=== PATIENT | female | born 2005 | race Caucasian/White ===

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

== ENCOUNTER 2024-05-05 21:49 | Emergency (ER) | payer MEDICAID, SELFPAY ==
--- NOTE | 2024-05-05 | ECG_ITS ---
Test Reason : cp Blood Pressure : */* mmHG Vent. Rate : 79 BPM Atrial Rate : 79 BPM P-R Int : 148 ms QRS Dur : 86 ms QT Int : 370 ms P-R-T Axes : 64 75 57 degrees QTcB Int : 424 ms Normal sinus rhythm with sinus arrhythmia Normal ECG No previous ECGs available Referred By: Generic ED Physician Electronically Signed By: Marlon Zabala
[2024-05-05 21:56] VITALS: BP 120/57; PULSE 85; RESP 18; TEMP 36.9; O2SAT 100; BMI 23.9
--- NOTE | 2024-05-05 21:59 | MHC.EDTECH ---
EKG taken per order,signed by provider
--- NOTE | 2024-05-05 22:13 | MHC.EDTECH ---
Patient brought into triage area,labs,and urine collected,sent o lab
[2024-05-05 22:26] LABS: Hematocrit 38.7 % (37.0-47.0); Hemoglobin 13.1 g/dl (12.0-16.0); Mean Corpuscular HGB Conc 33.9 g/dl (31.0-35.0); Mean Corpuscular Hemoglobin 30.4 pg (27.0-33.0); Mean Corpuscular Volume 89.8 fL (80.0-98.0); Mean Platelet Volume 10.4 fL (9.4-12.3); Platelet Count 245 X10*3/uL (160-400); Red Blood Count 4.31 X10*6/uL (4.20-5.50); Red Cell Distribution Width 12.2 % (11.0-16.0); White Blood Count 7.7 X10*3/uL (4.8-10.8)
[2024-05-05 22:30] LABS: Appearance Urine Cloudy; Color Urine Yellow; Glucose Urine UA Negative (Negative); Leukocyte Esterase Urine Moderate (2+) (Negative); Nitrite Urine Negative (Negative); PH 6.5 (5.0-9.0); UMIC TRIGGER UACC YES; Urine Blood Negative (Negative); Urine Ketones Negative (Negative); Urine Protein Negative (Neg-Trace)
[2024-05-05 22:34] LABS: Alanine Aminotransferase 52 U/L (0-31); Albumin Level 4.3 g/dL (3.5-5.0); Alkaline Phosphatase 78 U/L (39-117); Anion Gap 9 (12-20); Aspartate Amino Transferase 32 U/L (5-31); Bilirubin Total 0.2 mg/dL (0.0-1.0); Blood Urea Nitrogen 13 mg/dL (9-16); Carbon Dioxide 21 mmol/L (22-29); Chloride 113 mmol/L (96-108); Creatinine Clr Calc Pharmacy 95.6; Estimated Glomerular Filt Rate > 60; Glucose Random 94 mg/dL (60-115); Potassium 3.9 mmol/L (3.3-5.1); Sodium 139 mmol/L (135-145)
[2024-05-05 22:43] LABS: Troponin-I High Sensitivity < 2.7 ng/L (<3.5-17.0)
[2024-05-05 22:50] LABS: Bacteria Urine 3+ (None Seen); Hyaline Casts Urine 0-2 /LPF (0-2); RBC Urine 0-2 /HPF (0-2); UACC Culture Trigger YES; WBC Urine 21-50 /HPF (0-5)
[2024-05-06 02:12] VITALS: BP 121/69; PULSE 82; RESP 18; TEMP 37.1; O2SAT 100
--- NOTE | 2024-05-06 02:47 | ED.CHESTPAIN ---
HPI - Chest Pain General Chief Complaint: Chest Pain Stated Complaint: chest pain, bladder issues Time Seen by Provider: 05/06/24 03:33 Source: patient Mode of arrival: ambulatory Limitations: no limitations History of Present Illness ED Provider: Dr. Benedicto Reyna HPI narrative: 19-year-old female with a history of depression, anxiety, bipolar disorder who presents emergency department for evaluation left-sided chest tightness /pressure x1 month. She states that the chest pain is intermittent and she gets 2-3 episodes per day. She states the episodes could last 10 seconds to 3 minutes. The patient states that her grandmother was concerned about the symptoms encourage the patient to come to the emergency department for evaluation. The patient denied fever, chills, cough, nausea, vomiting, diarrhea, frequency, urgency or dysuria. Related Data Previous Rx's ?Medication ?Instructions ?Recorded prednisone 20 mg tablet 40 mg (2 x 20 mg) PO DAILY #10 tabs 11/15/22 triamcinolone acetonide 0.5 % 1 appl topical BID #15 grams 11/15/22 topical cream Allergies Allergy/AdvReac Type Severity Reaction Status Date / Time No Known Allergies Allergy Verified 05/05/24 21:59 Review of Systems Review of Systems: Yes all other systems are reviewed and are negative PMFSH Social History Social History Smoked in Last 30 Days: Yes Advance Directives: No Advance Directives Information Provided: No Physical Exam Vital Signs: Vital Signs: Last Vital Signs Temp 98.2 F 05/06/24 05:13 Pulse 90 05/06/24 05:13 Resp 14 05/06/24 05:13 BP 124/80 05/06/24 05:13 Pulse Ox 99 05/06/24 05:13 O2 Del Method Room Air 05/06/24 05:13 BMI result Body Mass Index 23.9 Vital signs were normal Exam: General: Awake, alert in no distress Head: Normocephalic, atraumatic EENT: PERRL, Lids normal, sclera normal, conjunctiva normal, nose normal , ears normal, throat without erythema or exudates Neck: Supple, no adenopathy Lung: breath sounds symmetric, no wheezing, rales or rhonchi Chest: symmetric movement, patient has tenderness palpation of her costochondral joints in the anterior chest left greater than right Heart: regular rate and rhythm, normal S1, S2 no murmurs or rubs Abdomen: soft, non-tender, nondistended, normal bowel sounds Back: no vertebral tenderness, no CVAT Extremities: no deformities, moves all extremities symmetrically Neuro: Awake, alert, oriented, normal speech, cranial nerves intact, moves all extremities symmetrically Psych: Pleasant, cooperative Medical Decision Making Medical Decision Making [facility] Narrative: 19-year-old female with a history of depression, anxiety, bipolar disorder who presents emergency department for evaluation Of intermittent, left-sided chest pressure/ tightness with to 3 episodes per day lasting 10 seconds to 3 minutes with symptoms being present x1 month. vital signs were normal. Physical examination did reveal costochondral anterior chest tenderness left greater than right. Differential diagnosis: Includes but is not limited to Chest wall pain, costochondritis, myocardial infarction, myocardial ischemia, anemia, electrolyte abnormalities Course: My independent interpretation patient's laboratory evaluation is as follows: CBC was normal. Chloride was elevated 113. Bicarb low 21. AST and ALT will elevated 32 and 52. High sensitive troponin I was below detectable limits. Urinalysis positive leukocyte esterase. Microscopic 0-2 RBCs, 21-50 WBCs, 3+ bacteria, 6-10 squamous cells -this is not a clean-catch specimen. Patient's EKG was unremarkable Patient's presentation laboratory findings and exam are consistent with costochondritis and I did discuss this with the patient. Patient was advised to take ibuprofen 400 mg every 6 hours for the next 5 days to see if this improves her symptoms. She was given printed and verbal instructions advised follow-up with PCP for re-evaluation. Admission/Observation Consideration of admission/observation: Escalation of care including admission/observation considered ( yes) Lab Data [facility] Lab Attestation statement: I reviewed the patient's lab results. 05/05/24 22:12 05/05/24 22:12 Labs: Lab Results 05/05/24 Range/Units 22:12 WBC 7.7 (4.8-10.8) X10*3/uL RBC 4.31 (4.20-5.50) X10*6/uL Hgb 13.1 (12.0-16.0) g/dl Hct 38.7 (37.0-47.0) % MCV 89.8 (80.0-98.0) fL MCH 30.4 (27.0-33.0) pg MCHC 33.9 (31.0-35.0) g/dl RDW 12.2 (11.0-16.0) % Plt Count 245 (160-400) X10*3/uL MPV 10.4 (9.4-12.3) fL Absolute Nucleated RBC 0.000 (0.0-0.012) X10*3/uL Nucleated RBC % (auto) 0.0 (0.0-0.2) /100WBC Sodium 139 (135-145) mmol/L Potassium 3.9 (3.3-5.1) mmol/L Chloride 113 H (96-108) mmol/L Carbon Dioxide 21 L (22-29) mmol/L Anion Gap 9 L (12-20) BUN 13 (9-16) mg/dL Creatinine 0.81 (0.5-1.4) mg/dL Estim Creat Clear Calc 95.6 Estimated GFR > 60 Random Glucose 94 (60-115) mg/dL Calcium 9.0 (8.4-10.2) mg/dL Total Bilirubin 0.2 (0.0-1.0) mg/dL AST 32 H (5-31) U/L ALT 52 H (0-31) U/L Alkaline Phosphatase 78 (39-117) U/L Troponin I High Sens < 2.7 (<3.5-17.0) ng/L Total Protein 7.0 (6.5-8.0) g/dL Albumin 4.3 (3.5-5.0) g/dL Urine Color Yellow Urine Appearance Cloudy Urine pH 6.5 (5.0-9.0) Ur Specific [place] 1.020 (1.005-1.025) Urine Protein Negative (Neg-Trace) mg/dL Urine Glucose (UA) Negative (Negative) mg/dL Urine Ketones Negative (Negative) mg/dL Urine Blood Negative (Negative) Urine Nitrite Negative (Negative) Ur Leukocyte Esterase Moderate (2+) H (Negative) Urine RBC 0-2 (0-2) /HPF Urine WBC 21-50 (0-5) /HPF Ur Squamous Epith Cells 6-10 (0-2) /HPF Urine Bacteria 3+ (None Seen) Hyaline Casts 0-2 (0-2) /LPF Independent Interpretation I performed an independent interpretation of an: EKG Interpretation: My independent interpretation patient's 12 EKG is as follows: Normal sinus rhythm with a rate of 79, normal MO interval, QRS duration QTC interval, no ST segment elevation, no ST segment depression, no significant T-wave abnormalities, no PACs, no PVCs. This is a normal EKG Chronic Conditions Patient?s care impacted by: Other ( depression and anxiety) Discharge Plan Discharge Clinical Impression: Acute costochondritis Patient Disposition: Home, Self-Care Instructions: Costochondritis (ED) Additional Instructions: Your laboratory evaluation was unremarkable. Your urinalysis did not look like you have an infection and I do not think that you need antibiotics at this time. However we do try to grow bacteria out of your urine and if you grow a significant amount of bacteria, the emergency department will contact you and start you on antibiotics. Your symptoms and physical exam are consistent with inflammation of the joints of your chest. This is called costochondritis. I want you to take ibuprofen 200 mg pills, 2 pills every 6 hours (3 times a day) for 5 days to see if this improves your symptoms Follow-up with your doctor in 2 days. Please return to the emergency department if your symptoms get worse or if you develop any symptoms that are concerning to you. Prescriptions: No Action prednisone 20 mg tablet 40 mg PO DAILY Qty: 10 0RF triamcinolone acetonide 0.5 % cream 1 appl topical BID Qty: 15 0RF Rx Instructions: right foot Stand Alone Forms: Work/School Release Interventions: ED Discharge Assessment Last Done: 05/06/24 05:13 Discharge Date/Time: 05/06/24 05:14 Print Language: [place]
[2024-05-06 03:52] VITALS: BP 112/75; PULSE 79; RESP 14; TEMP 36.9; O2SAT 99
[2024-05-06 05:03] VITALS: BP 124/80; PULSE 90; RESP 14; TEMP 36.8; O2SAT 99
--- NOTE | 2024-05-06 05:08 | PC.NURSE ---
Reviewed discharge instructions with pt. pt verbalized understanding, no sign of distress upon discharge, pt ambulated with a steady gait.
[2024-05-06 05:13] VITALS: BP 124/80; PULSE 90; RESP 14; TEMP 36.8; O2SAT 99
== END 2024-05-06 05:14 | disposition home or self-care (01) ==
PROVIDERS: Emergency Provider Emergency Medicine Emergency Medical Services
DX: M94.0 Chondrocostal junction syndrome [Tietze] (principal); R82.90 Unspecified abnormal findings in urine; R79.89 Other specified abnormal findings of blood chemistry; Z79.899 Other long term (current) drug therapy
CPT/HCPCS: 36415; 80053; 81001; 84484; 85027; 87086; 87088; 87186; 93005; 99283; 99285

== ENCOUNTER → 2024-05-05 21:54 | Outpatient (BNV) | payer MEDICAID, SELFPAY | PROVIDERS: Emergency Provider Emergency Medicine Emergency Medical Services; Visit Provider Internal Medicine Cardiovascular Disease | DX: R07.9 Chest pain, unspecified (principal) | CPT/HCPCS: 93010 ==

== ENCOUNTER 2024-09-16 11:23 | Outpatient (AMB) | payer OTHER, SELFPAY ==
[2024-09-16 11:48] VITALS: BP 98/64; PULSE 69; RESP 16; TEMP 36.9; O2SAT 99; BMI 21.3
--- NOTE | 2024-09-16 11:48 | MHC.PC.OV ---
Vital Signs 09/16/24 11:48 Height 5 ft 4 in Weight 124 lb BMI 21.3 BP 98/64 Blood Pressure Location Rt brachial Position Sitting Respiration 16 Pulse 69 Pulse Source Pulse Oximeter Temp 98.5 F Temp Source Oral Pulse Oximetry (%) 99 Oxygen Delivery Method Room Air Intake Visit Reasons: WIRE WHEELER, ok per Intake Note: Pt is here today for New patient visit PE. Allergies No Known Allergies Allergy (Verified 09/16/24 11:48) Medication List - Last Reconciled 09/16/24 by Margy Caceres MD aripiprazole 10 mg PO DAILY etonogestrel (Nexplanon) subdermal hydroxyzine HCl 25 mg PO BID sertraline 25 mg PO DAILY Tobacco use date assessed: 09/16/24 Dental Screening Dental Screen Date: 09/16/24 Did you have a dental visit in the last 12 months?: Yes Did you have a dental problem in the last 6 months where you did not have access to dental care?: No Was dental information given to patient?: Patient has dentist HPI WIRE WHEELER, ok per HPI Details Pt presents for WIRE WHEELER visit. Pt c/o chronic diarrhea on and off for years but noticed small amount of blood in his stool in the last few weeks. Diarrhea is worse after eating dairy She denies abdominal pain nausea vomiting weight loss or change in appetite. Past medical history includes bipolar disorder patient has stopped taking her psychiatric medications a few months ago but restarted a week ago because was not feeling well. Patient is to be established with a psychiatrist but it is looking for a new Psychiatry. Patient denies suicide ideation. She moved from [place] 2 years ago where she used to live with her father. [facility], [facility] Medical History Bipolar 1 disorder Diarrhea Annual physical exam Surgical History (Updated 09/16/24 @ 11:57 by KATIA Triana) History of ear surgery Family History (Updated 09/16/24 @ 12:00 by KATIA Triana) Father Mental health disorder Substance use disorder Mother Substance use disorder Social History (Updated 09/16/24 @ 13:10 by Margy Caceres MD) Household Members Other:: lives with grandmother, used to live in [place] with her father, sex active, Housing: House Patient Tobacco Use Status: Current everyday Tobacco user e-Cigarette/Vaping Use: Currently Using service: No Current occupational status: employed Cognitive needs: No Hearing needs: No Vision needs: Yes Questionnaire PHQ-9 Over the last 2 weeks, how often have you been bothered by any of the following problems? 1. Little interest or pleasure in doing things: more than half the days 2. Feeling down, depressed, or hopeless: more than half the days 3. Trouble falling or staying asleep, or sleeping too much: more than half the days 4. Feeling tired or having little energy: more than half the days 5. Poor appetite or overeating: more than half the days 6. Feeling bad about yourself - or that you are a failure or have let yourself or your family down: more than half the days 7. Trouble concentrating on things, such as reading the newspaper or watching television: nearly every day 8. Moving or speaking so slowly that other people could have noticed. Or the opposite - being so fidgety or restless that you have been moving around a lot more than usual: nearly every day 9. Thoughts that you would be better off or of hurting yourself in some way: not at all Total score: 18 Depression Screening Interpretation: Positive (Patient restarted her medications. She is in process of finding a new psychiatrist) Depression Screening Follow-up: Existing condition and In treatment Depression Screening Done: Yes 26611 - PHQ-9 Billing: Yes Source: Developed by Drs. Cristopher Curran, Lisset Manjarrez, Dave Mccarthy and colleagues, with an educational radha from [employer]. Thrive Questionnaire Date Thrive assessed: 09/16/24 I am a: Patient What is your living situation today?: I have a steady place to live Within the past 12 months, did the food you bought not last and you didn't have the money to get more?: Never true Within the past 12 months, did you worry whether your food would run out before you got money to buy more?: Never true Do you have trouble paying for medicines?: No Do you have trouble getting transportation to medical appointments?: Yes Do you have trouble paying your heating and electricity bill?: No Do you have trouble taking care of your child, family member or friend?: No Do you have trouble with day-to-day activities such as bathing, preparing meals, shopping, managing finances, etc.?: Yes Are you currently unemployed and looking for a job?: No Are you interested in more education?: Yes Please select the resources that you would like help with: Daily support Currently or been in a relationship where the following occur: No concerns reported THRIVE Score: 1 AUDIT C Alcohol Use Questionnaire (AUDIT-C) 1. How often do you have a drink containing alcohol?: 2-4 times a month 2. How many drinks containing alcohol do you have on a typical day when you are drinking?: 3 or 4 3. How often do you have six or more drinks on one occasion?: Never Total Score: 3 ROXANA-7 AMB Questionnaire ROXANA-7 Date ROXANA - 7 assessed: 09/16/24 Feeling nervous, anxious, or on edge: 3 = Nearly every day Not being able to stop or control worryin = More than half the days Worrying too much about different things: 3 = Nearly every day Trouble relaxin = More than half the days Being so restless that it is hard to sit still: 3 = Nearly every day Becoming easily annoyed or irritable: 3 = Nearly every day Feeling afraid as if something awful might happen: 3 = Nearly every day Total ROXANA-7 score (0-4 normal; 5-9 mild; 10-14 moderate; 15-21 severe): 19 Source: Developed by Drs. Cristopher Curran, Lisset Manjarrez, Dave Mccarthy and colleagues, with an educational radha from [employer]. ROXANA-7 Assessment Billing ROXANA-7 Assessment Tool: ROXANA-7 Assessment 97434 Review of Systems Const All systems reviewed & are unremarkable except as noted in HPI and below Eyes Reports no additional complaints ENT Reports no additional complaints Card Reports no additional complaints Resp Reports no additional complaints GI Reports no additional complaints Reports no additional complaints Physical exam (Primary Care) Vital Signs: Last Vital Signs Temp 98.5 F 09/16/24 11:48 Pulse 69 09/16/24 11:48 Resp 16 09/16/24 11:48 BP 98/64 09/16/24 11:48 Pulse Ox 99 09/16/24 11:48 Oxygen Delivery Method Room Air 09/16/24 11:48 BMI result Body Mass Index 21.3 Tobacco/Smoking Status: Tobacco use Status Tobacco use date assessed 09/16/24 09/16/24 11:49 Patient Tobacco Use Status Current everyday Tobacco 09/16/24 13:10 e-Cigarette/Vaping Use Currently Using 09/16/24 13:10 PHQ-9: PHQ-9 Score PHQ-9: Total score 18 09/16/24 13:10 Depression Screening Interpretation: Positive (Patient restarted her medications. She is in process of finding a new psychiatrist) Depression Screening Follow-up: Existing condition and In treatment Thrive Assessment: Date of Thrive Assessment Date Thrive assessed 09/16/24 09/16/24 12:01 Currently or been in a relationship where the following occur: No concerns reported Const General: no acute distress HENMT Head: Yes normal to inspection Ears: hearing grossly normal bilaterally Mouth: Normal oral and palatal mucosa present Eyes General: appearance normal, both eyes and all related structures Neck Neck: Yes no lymphadenopathy and Yes supple Resp Effort & Inspection: normal respiratory effort Auscultation: clear to auscultation bilaterally Cardio Rhythm: regular rhythm Heart sounds: S1 normal heart sound present and S2 normal heart sound present GI Inspection: Yes normal to inspection Palpation (GI): Soft to palpation Percussion: Yes normal to percussion Auscultation: normal bowel sounds Coding Level of Care Code New Pt Level 4 (66502) Diagnoses Bipolar 1 disorder F31.9 Diarrhea R19.7 Additional Codes ROXANA-7 Assessment Billing - ROXANA-7 Assessment Tool: ROXANA-7 Assessment 96479 ([id number]) PHQ-9 - 97996 - PHQ-9 Billing: Yes ([id number]) Assessment & Plan Assessment & Plan (1) Bipolar 1 disorder: Comment: used to to see psychiatry, hospitalized at [facility] for 1 week in 2022, stopped meds for a few months but restarted mid August 2024 Code(s): F31.9 - Bipolar disorder, unspecified Category: Medical Plan: Patient restarted her medications. She will find a new psychiatrist and a counselor (2) Diarrhea: Comment: chronic for many yrs, no GI w/u Code(s): R19.7 - Diarrhea, unspecified Category: Medical Plan: Obtain basic blood work stool studies including Hemoccult. Patient was advised to avoid dairy fresh vegetables and fruits for 2 weeks and will follow-up Orders: Orders Leukocytes Stool Qualitative Today R19.7 - Diarrhea, unspecified AMB Stool Occult Bld x3 gFOBT Today R19.7 - Diarrhea, unspecified, Z12.11 - Encounter for screening for malignant neoplasm of colon, Z12.12 - Encounter for screening for malignant neoplasm of rectum CDiff Gene PCR Today R19.7 - Diarrhea, unspecified Medications: Discontinued nitrofurantoin macrocrystal must administer with a meal/food Discontinued Reason: Patient Completed Course 100 mg PO BID 5 days 10 caps 0RF prednisone Discontinued Reason: Patient Completed Course 40 mg (2 x 20 mg) PO DAILY 10 tabs 0RF triamcinolone acetonide 0.5% right foot Discontinued Reason: Patient Completed Course 1 appl topical BID 15 grams 0RF
== END 2024-09-16 13:21 | disposition home or self-care (01) ==
LOC: HO.HMCC 11:24
PROVIDERS: Visit Provider Internal Medicine
DX: F31.9 Bipolar disorder, unspecified (principal); R19.7 Diarrhea, unspecified

== ENCOUNTER → 2024-09-16 11:23 | Outpatient (BNVA) | payer OTHER, SELFPAY | PROVIDERS: Visit Provider Internal Medicine | DX: Z76.89 Persons encountering health services in other specified circumstances (principal); F31.9 Bipolar disorder, unspecified; R19.7 Diarrhea, unspecified | CPT/HCPCS: 96127; 99202 ==

== ENCOUNTER 2024-09-18 10:32 | Outpatient (REF) | payer OTHER, SELFPAY ==
[2024-09-18 13:36] LABS: MANUAL DIFF FLAG NO
[2024-09-18 13:39] LABS: Basophils Absolute Auto 0.1 X10*3/uL (0.0-0.2); Basophils Percent Auto 1.8 % (0-2); Eosinophils Absolute Auto 0.1 X10*3/uL (0.0-0.4); Eosinophils Percent Auto 2.4 % (0-4); Hematocrit 37.6 % (37.0-47.0); Hemoglobin 12.7 g/dl (12.0-16.0); Imm Gran Abs Auto 0.01 X10*3/uL (0.00-0.03); Imm Gran Pct Auto 0.2 % (0.0-0.4); Lymphocytes Absolute Auto 1.7 X10*3/uL (1.2-4.9); Lymphocytes Percent Auto 37.9 % (20-40); Mean Corpuscular HGB Conc 33.8 g/dl (31.0-35.0); Mean Corpuscular Volume 88.9 fL (80.0-98.0); Mean Platelet Volume 11.4 fL (9.4-12.3); Monocytes Absolute Auto 0.5 X10*3/uL (0.1-1.2); Monocytes Percent Auto 10.9 % (2-11); Neutrophils Absolute Auto 2.1 x10*3/uL (2.0-8.3); Neutrophils Percent Auto 46.8 % (45-73); Platelet Count 255 X10*3/uL (160-400); Red Blood Count 4.23 X10*6/uL (4.20-5.50); Red Cell Distribution Width 12.9 % (11.0-16.0); White Blood Count 4.5 X10*3/uL (4.8-10.8)
[2024-09-18 14:01] LABS: Appearance Urine Clear; Color Urine Yellow; Glucose Urine UA Negative (Negative); Leukocyte Esterase Urine Trace (Negative); Nitrite Urine Negative (Negative); PH 6.5 (5.0-9.0); Specific Gravity - Urine 1.015 (1.005-1.025); UMIC TRIGGER UA YES; Urine Blood Negative (Negative); Urine Ketones Negative (Negative); Urine Protein Negative (Neg-Trace)
[2024-09-18 14:01] LABS: Alanine Aminotransferase 62 U/L (0-31); Albumin Level 4.5 g/dL (3.5-5.0); Alkaline Phosphatase 78 U/L (39-117); Anion Gap 12 (12-20); Aspartate Amino Transferase 31 U/L (5-31); Bilirubin Total 0.7 mg/dL (0.0-1.0); Blood Urea Nitrogen 8 mg/dL (9-16); C Reactive Protein < 0.10 mg/dL (< or = 0.50); Calcium 9.4 mg/dL (8.4-10.2); Carbon Dioxide 24 mmol/L (22-29); Chloride 107 mmol/L (96-108); Cholesterol 180 mg/dL (<200); Estimated Glomerular Filt Rate > 60; Glucose Fasting 84 mg/dL (60-99); HDL Cholesterol 52 mg/dL (>40); Iron 96 mcg/dL (30-160); LDL Cholesterol Calculated 120 mg/dL (<100); Percent Iron Saturation 30 % (15-50); Potassium 3.8 mmol/L (3.3-5.1); Sodium 139 mmol/L (135-145); Total Iron Binding Capacity 315 mcg/dL (228-428); Triglycerides 41 mg/dL (<150); Unsaturated Iron Binding 219 ug/dL
[2024-09-18 14:25] LABS: Bacteria Urine 1+ (None Seen); Hyaline Casts Urine 0-2 /LPF (0-2); RBC Urine 0-2 /HPF (0-2); WBC Urine 0-5 /HPF (0-5)
[2024-09-19 03:21] LABS: Syphilis Screen Nonreactive (Nonreactive)
[2024-09-19 03:50] LABS: HIV AB/AG Nonreactive (Nonreactive); HIV Num 1 0.06 S/CO (0.00-0.99)
[2024-09-19 04:08] LABS: CT PCR NOT DETECTED (Not Detect.); NG PCR NOT DETECTED (Not Detect.)
[2024-09-22 15:19] LABS: Endomysial IgA Antibody Negative (Negative)
[2024-09-22 21:34] LABS: Gliadin Deamidated IgG Ab <1.0 U/mL; IgA 123 mg/dL (47-310); IgG 976 mg/dL (600-1640); IgM 104 mg/dL (50-300); Transglutaminase Ab IgG <1.0 U/mL; Transglutaminase IgA <1.0 U/mL
== END 2024-09-18 10:33 | disposition home or self-care (01) ==
LOC: HO.HMGCLDS 10:32
PROVIDERS: PCP Internal Medicine; Visit Provider Internal Medicine
DX: Z00.00 Encounter for general adult medical examination without abnormal findings (principal); R19.7 Diarrhea, unspecified
CPT/HCPCS: 80053; 80061; 81001; 82784; 83540; 84443; 85025; 86140; 86231; 86258; 86364; 86780; 87389; 87491; 87591

== ENCOUNTER 2024-09-26 | Outpatient (REF) | payer OTHER, SELFPAY ==
[2024-09-29 11:22] LABS: FIT Lot M01203; FIT1 NEGATIVE (NEGATIVE); FIT2 NEGATIVE (NEGATIVE)
[2024-09-29 11:23] LABS: FIT Int Ctl YES
== END 2024-09-26 00:01 | disposition home or self-care (01) ==
LOC: HO.LNP
PROVIDERS: Visit Provider Internal Medicine
DX: Z13.89 Encounter for screening for other disorder (principal)
CPT/HCPCS: 82274

== ENCOUNTER 2024-09-28 09:54 | Outpatient (REF) | payer OTHER, SELFPAY ==
[2024-09-28 13:55] LABS: Leukocytes Stool Qualitative NEGATIVE (NEGATIVE)
[2024-09-28 14:37] LABS: CDiff Gene PCR NEGATIVE (Negative)
[2024-10-05 20:04] LABS: Calprotectin, Fecal 10 mcg/g
== END 2024-09-28 09:55 | disposition home or self-care (01) ==
LOC: HO.HMGCLNP 09:54
PROVIDERS: PCP Internal Medicine; Visit Provider Internal Medicine
DX: R19.7 Diarrhea, unspecified (principal); Z00.00 Encounter for general adult medical examination without abnormal findings; Z12.11 Encounter for screening for malignant neoplasm of colon; Z12.12 Encounter for screening for malignant neoplasm of rectum
CPT/HCPCS: 83993; 87493; 89055

== ENCOUNTER 2024-10-13 09:16 | Outpatient (AMB) | payer OTHER, SELFPAY ==
[2024-10-13 09:21] VITALS: BP 106/68; PULSE 86; RESP 18; TEMP 36.9; O2SAT 98; BMI 20.9
--- NOTE | 2024-10-13 09:21 | A.OFFPC_ITS ---
Vital Signs 10/13/24 09:21 Height 5 ft 4 in Weight 122 lb BMI 20.9 BP 106/68 Blood Pressure Location Lt brachial Position Sitting Respiration 18 Pulse 86 Pulse Source Pulse Oximeter Temp 98.5 F Temp Source Oral Pulse Oximetry (%) 98 Oxygen Delivery Method Room Air Intake Visit Reasons: 1 month follow up Intake Note: Pt is here today for 1 month follow up visit. Allergies No Known Allergies Allergy (Verified 10/13/24 09:23) Medication List - Last Reconciled 10/13/24 by Margy Caceres MD aripiprazole 10 mg PO DAILY etonogestrel (Nexplanon) subdermal hydroxyzine HCl 25 mg PO BID sertraline 25 mg PO DAILY Tobacco use date assessed: 10/13/24 Dental Screening Dental Screen Date: 09/16/24 HPI 1 month follow up HPI Details Patient presents for the follow-up of chronic diarrhea. Stool studies and blood work were normal. Patient noticed improvement in her symptoms when avoiding artificial sugars and dairy. For bipolar disorder she has been taking her medications, feeling better and is waiting for an appointment with counselor and a prescriber. [facility] Medical History Bipolar 1 disorder Diarrhea Annual physical exam Surgical History (Updated 09/16/24 @ 11:57 by KATIA Triana) History of ear surgery Family History (Updated 09/16/24 @ 12:00 by KATIA Triana) Father Mental health disorder Substance use disorder Mother Substance use disorder Social History (Updated 09/16/24 @ 13:10 by Margy Caceres MD) Household Members Other:: lives with grandmother, used to live in [place] with her father, sex active, Housing: House Patient Tobacco Use Status: Current everyday Tobacco user e-Cigarette/Vaping Use: Currently Using service: No Current occupational status: employed Cognitive needs: No Hearing needs: No Vision needs: Yes Questionnaire Thrive Questionnaire Date Thrive assessed: 09/09/24 I am a: Patient What is your living situation today?: I have a steady place to live Within the past 12 months, did the food you bought not last and you didn't have the money to get more?: Never true Within the past 12 months, did you worry whether your food would run out before you got money to buy more?: Never true Do you have trouble paying for medicines?: No Do you have trouble getting transportation to medical appointments?: Yes Do you have trouble paying your heating and electricity bill?: No Do you have trouble taking care of your child, family member or friend?: No Do you have trouble with day-to-day activities such as bathing, preparing meals, shopping, managing finances, etc.?: Yes Are you currently unemployed and looking for a job?: No Are you interested in more education?: Yes Please select the resources that you would like help with: Daily support Currently or been in a relationship where the following occur: No concerns reported THRIVE Score: 1 ROXANA-7 AMB Questionnaire ROXANA-7 Date ROXANA - 7 assessed: 09/16/24 Source: Developed by Drs. Cristopher Curran, Lisset Manjarrez, Dave Mccarthy and colleagues, with an educational radha from [employer]. Review of Systems Const All systems reviewed & are unremarkable except as noted in HPI and below Eyes Reports no additional complaints ENT Reports no additional complaints Card Reports no additional complaints Resp Reports no additional complaints GI Reports no additional complaints Reports no additional complaints Physical exam (Primary Care) Vital Signs: Last Vital Signs Temp 98.5 F 10/13/24 09:21 Pulse 86 10/13/24 09:21 Resp 18 10/13/24 09:21 BP 106/68 10/13/24 09:21 Pulse Ox 98 10/13/24 09:21 Oxygen Delivery Method Room Air 10/13/24 09:21 BMI result Body Mass Index 20.9 Tobacco/Smoking Status: Tobacco use Status Tobacco use date assessed 10/13/24 10/13/24 09:26 Patient Tobacco Use Status Current everyday Tobacco 10/13/24 09:21 e-Cigarette/Vaping Use Currently Using 10/13/24 09:21 Thrive Assessment: Date of Thrive Assessment Date Thrive assessed 09/09/24 10/13/24 09:21 Currently or been in a relationship where the following occur: No concerns reported Const General: no acute distress HENMT Throat: Yes posterior oropharynx normal Eyes General: appearance normal, both eyes and all related structures Resp Effort & Inspection: normal respiratory effort Auscultation: clear to auscultation bilaterally Cardio Rhythm: regular rhythm Heart sounds: S1 normal heart sound present and S2 normal heart sound present GI Inspection: Yes normal to inspection Palpation (GI): Soft to palpation Percussion: Yes normal to percussion Auscultation: normal bowel sounds Coding Level of Care Code Est Pt Level 3 (67148) Diagnoses Diarrhea R19.7 Bipolar 1 disorder F31.9 Assessment & Plan Assessment & Plan (1) Diarrhea: Comment: chronic for many yrs, no GI w/u Code(s): R19.7 - Diarrhea, unspecified Category: Medical Plan: For chronic IBS with diarrhea well-balanced diet avoidance of dairy and artificial sugars discussed with the patient. She can try Metamucil Citrucel and Imodium as needed. Patient declined referral to GI (2) Bipolar 1 disorder: Comment: used to to see psychiatry, hospitalized at [facility] for 1 week in 2022, restarted meds mid August 2024 Code(s): F31.9 - Bipolar disorder, unspecified Category: Medical Plan: Continue current medications and follow-up with a counselor and a prescriber
== END 2024-10-13 09:53 | disposition home or self-care (01) ==
LOC: HO.HMCC 09:17
PROVIDERS: PCP Internal Medicine; Visit Provider Internal Medicine
DX: R19.7 Diarrhea, unspecified (principal); F31.9 Bipolar disorder, unspecified

== ENCOUNTER → 2024-10-13 09:16 | Outpatient (BNVA) | payer OTHER, SELFPAY | PROVIDERS: PCP Internal Medicine; Visit Provider Internal Medicine | DX: K59.09 Other constipation (principal); F31.9 Bipolar disorder, unspecified; Z71.89 Other specified counseling | CPT/HCPCS: 99212 ==

== ENCOUNTER 2025-01-14 08:59 | Outpatient (AMB) | payer OTHER, SELFPAY ==
--- NOTE | 2025-01-14 09:05 | MHC.PC.OV ---
Vital Signs 01/14/25 09:06 Height 5 ft 4 in Weight 124 lb BMI 21.3 BP 96/64 Blood Pressure Location Rt brachial Position Sitting Respiration 19 Pulse 81 Pulse Source Pulse Oximeter Temp 98.2 F Temp Source Oral Pulse Oximetry (%) 98 Oxygen Delivery Method Room Air Intake Visit Reasons: 3month follow up Intake Note: Pt is here today for 3 months follow up visit. Allergies No Known Allergies Allergy (Verified 01/14/25 09:08) Medication List - Last Reconciled 01/14/25 by Margy Caceres MD aripiprazole 10 mg PO DAILY etonogestrel (Nexplanon) subdermal hydroxyzine HCl 25 mg PO BID sertraline 25 mg PO DAILY Tobacco use date assessed: 01/14/25 Dental Screening Dental Screen Date: 09/16/24 HPI 3month follow up HPI Details Pt pesents for f/u chronic diarrhea and abd discomfort after eating for many years. Celiac disease labs were negative. Pt tried different diets including lactose free without change of her symptoms. Pt f/u with psychiatry for bipolar disorder. [facility] Medical History (Updated 01/14/25 @ 20:53 by Margy Caceres MD) Bipolar 1 disorder Diarrhea Annual physical exam Surgical History History of ear surgery Family History Father Mental health disorder Substance use disorder Mother Substance use disorder Social History Household Members Other:: lives with grandmother, used to live in [place] with her father, sex active, Housing: House Patient Tobacco Use Status: Current everyday Tobacco user e-Cigarette/Vaping Use: Currently Using service: No Current occupational status: employed Cognitive needs: No Hearing needs: No Vision needs: Yes Questionnaire Thrive Questionnaire Date Thrive assessed: 09/09/24 I am a: Patient What is your living situation today?: I have a steady place to live Within the past 12 months, did the food you bought not last and you didn't have the money to get more?: Never true Within the past 12 months, did you worry whether your food would run out before you got money to buy more?: Never true Do you have trouble paying for medicines?: No Do you have trouble getting transportation to medical appointments?: Yes Do you have trouble paying your heating and electricity bill?: No Do you have trouble taking care of your child, family member or friend?: No Do you have trouble with day-to-day activities such as bathing, preparing meals, shopping, managing finances, etc.?: Yes Are you currently unemployed and looking for a job?: No Are you interested in more education?: Yes Please select the resources that you would like help with: Daily support Currently or been in a relationship where the following occur: No concerns reported THRIVE Score: 1 ROXANA-7 AMB Questionnaire ROXANA-7 Date ROXANA - 7 assessed: 09/16/24 Source: Developed by Drs. Cristopher Curran, Lisset Manjarrez, Dave Mccarthy and colleagues, with an educational radha from [employer]. Review of Systems Const All systems reviewed & are unremarkable except as noted in HPI and below Eyes Reports no additional complaints ENT Reports no additional complaints Card Reports no additional complaints Resp Reports no additional complaints GI Reports no additional complaints Reports no additional complaints Physical exam (Primary Care) Vital Signs: Last Vital Signs Temp 98.2 F 01/14/25 09:06 Pulse 81 01/14/25 09:06 Resp 19 01/14/25 09:06 BP 96/64 01/14/25 09:06 Pulse Ox 98 01/14/25 09:06 Oxygen Delivery Method Room Air 01/14/25 09:06 BMI result Body Mass Index 21.3 Tobacco/Smoking Status: Tobacco use Status Tobacco use date assessed 01/14/25 01/14/25 09:14 Patient Tobacco Use Status Current everyday Tobacco 01/14/25 09:14 e-Cigarette/Vaping Use Currently Using 01/14/25 09:14 Thrive Assessment: Date of Thrive Assessment Date Thrive assessed 09/09/24 01/14/25 09:14 Currently or been in a relationship where the following occur: No concerns reported Const General: no acute distress HENMT Head: Yes normal to inspection Mouth: Normal oral and palatal mucosa present Eyes General: appearance normal, both eyes and all related structures Neck Neck: Yes supple Resp Effort & Inspection: normal respiratory effort Auscultation: clear to auscultation bilaterally Cardio Rhythm: regular rhythm Heart sounds: S1 normal heart sound present and S2 normal heart sound present GI Inspection: Yes normal to inspection Palpation (GI): Soft to palpation and No Rebound tenderness present Percussion: Yes normal to percussion Auscultation: normal bowel sounds Coding Level of Care Code Est Pt Level 4 (63377) Diagnoses Abdominal pain R10.9 Bipolar 1 disorder F31.9 Assessment & Plan Assessment & Plan (1) Abdominal pain: Comment: negative stool studies and celiac w/u. IBS Code(s): R10.9 - Unspecified abdominal pain Category: Medical Plan: try dicyclomine, check abd US, refer to GI (2) Bipolar 1 disorder: Comment: f/u with psychiatry, hospitalized at [facility] for 1 week in 2022, restarted meds mid August 2024 Code(s): F31.9 - Bipolar disorder, unspecified Category: Medical Plan: f/u psychiatry Orders: Orders US abdomen complete Today R10.9 - Unspecified abdominal pain Referrals Gastroenterology Referral K52.9 - Noninfective gastroenteritis and colitis, unspecified Medications: New dicyclomine 10 mg PO TID 90 caps 0RF
[2025-01-14 09:06] VITALS: BP 96/64; PULSE 81; RESP 19; TEMP 36.8; O2SAT 98; BMI 21.3
--- OUTSIDE RECORDS SUMMARY | 2025-01-14 09:36 | XMS_ITS ---
Author Name [facility] Organization Unknown Care Team Organization Name Specialty Phone Email Start Date End Da te [facility] Joana Gong [facility] 12/26/2022 12/08/2023 [facility] SHERIDAN ZAZUETA Primary Care [email or web address] 08/26/2022 12/08/2023 [facility] 06/26/2022 12/08/2023
== END 2025-01-14 09:40 | disposition home or self-care (01) ==
LOC: HO.HMCC 09:00
PROVIDERS: PCP Internal Medicine; Visit Provider Internal Medicine
DX: R10.9 Unspecified abdominal pain (principal); F31.9 Bipolar disorder, unspecified

== ENCOUNTER → 2025-01-14 08:59 | Outpatient (BNVA) | payer OTHER, SELFPAY | PROVIDERS: PCP Internal Medicine; Visit Provider Internal Medicine | DX: R10.9 Unspecified abdominal pain (principal); F31.9 Bipolar disorder, unspecified; K52.9 Noninfective gastroenteritis and colitis, unspecified | CPT/HCPCS: 99212 ==

== ENCOUNTER 2025-03-22 10:49 | Outpatient (AMB) | payer OTHER, SELFPAY ==
[2025-03-22 10:54] VITALS: BP 108/66; PULSE 81; RESP 18; TEMP 36.7; O2SAT 98; BMI 22.7
--- NOTE | 2025-03-22 10:54 | A.OFFPC_ITS ---
Vital Signs 03/22/25 10:54 Height 5 ft 4 in Weight 132 lb BMI 22.7 BP 108/66 Blood Pressure Location Lt brachial Position Sitting Respiration 18 Pulse 81 Pulse Source Pulse Oximeter Temp 98.1 F Temp Source Oral Pulse Oximetry (%) 98 Oxygen Delivery Method Room Air Intake Visit Reasons: 2m follow up Intake Note: Pt is here today for 2 months follow up visit. Allergies No Known Allergies Allergy (Verified 03/22/25 10:57) Medication List - Last Reconciled 03/22/25 by Margy Caceres MD aripiprazole 10 mg PO DAILY dicyclomine 10 mg PO TID etonogestrel (Nexplanon) subdermal hydroxyzine HCl 25 mg PO BID sertraline 25 mg PO DAILY Tobacco use date assessed: 03/22/25 Dental Screening Dental Screen Date: 09/16/24 HPI 2m follow up HPI Details Patient presents for the follow-up chronic abdominal pain and bloating. Her symptoms improved slightly on dicyclomine 10 mg 3 times a day. Patient reports sensation of abdominal fullness and discomfort after eating and some nausea but no vomiting. Patient reports having more formed bowel movements and denies hematochezia or melena. She is established with psychiatrist for bipolar disorder controlled on current medicaations. [facility] Medical History (Updated 01/14/25 @ 20:53 by Margy Caceres MD) Bipolar 1 disorder Diarrhea Annual physical exam Surgical History History of ear surgery Family History Father Mental health disorder Substance use disorder Mother Substance use disorder Social History Household Members Other:: lives with grandmother, used to live in [place] with her father, sex active, Housing: House Patient Tobacco Use Status: Current everyday Tobacco user e-Cigarette/Vaping Use: Currently Using service: No Current occupational status: employed Cognitive needs: No Hearing needs: No Vision needs: Yes Questionnaire Thrive Questionnaire Date Thrive assessed: 09/09/24 I am a: Patient What is your living situation today?: I have a steady place to live Within the past 12 months, did the food you bought not last and you didn't have the money to get more?: Never true Within the past 12 months, did you worry whether your food would run out before you got money to buy more?: Never true Do you have trouble paying for medicines?: No Do you have trouble getting transportation to medical appointments?: Yes Do you have trouble paying your heating and electricity bill?: No Do you have trouble taking care of your child, family member or friend?: No Do you have trouble with day-to-day activities such as bathing, preparing meals, shopping, managing finances, etc.?: Yes Are you currently unemployed and looking for a job?: No Are you interested in more education?: Yes Please select the resources that you would like help with: Daily support Currently or been in a relationship where the following occur: No concerns reported THRIVE Score: 1 ROXANA-7 AMB Questionnaire ROXANA-7 Date ROXANA - 7 assessed: 09/16/24 Source: Developed by Drs. Cristopher Curran, Lisset Manjarrez, Dave Mccarthy and colleagues, with an educational radha from [employer]. Review of Systems Const All systems reviewed & are unremarkable except as noted in HPI and below Card Reports no additional complaints Resp Reports no additional complaints GI Reports no additional complaints Reports no additional complaints Physical exam (Primary Care) Vital Signs: Last Vital Signs Temp 98.1 F 03/22/25 10:54 Pulse 81 03/22/25 10:54 Resp 18 03/22/25 10:54 BP 108/66 03/22/25 10:54 Pulse Ox 98 03/22/25 10:54 Oxygen Delivery Method Room Air 03/22/25 10:54 BMI result Body Mass Index 22.7 Tobacco/Smoking Status: Tobacco use Status Tobacco use date assessed 03/22/25 03/22/25 11:00 Patient Tobacco Use Status Current everyday Tobacco 03/22/25 10:54 e-Cigarette/Vaping Use Currently Using 03/22/25 10:54 Thrive Assessment: Date of Thrive Assessment Date Thrive assessed 09/09/24 03/22/25 10:54 Currently or been in a relationship where the following occur: No concerns reported Const General: no acute distress HENMT Mouth: Normal oral and palatal mucosa present Eyes General: appearance normal, both eyes and all related structures Resp Effort & Inspection: normal respiratory effort Auscultation: clear to auscultation bilaterally Cardio Rhythm: regular rhythm Heart sounds: S1 normal heart sound present and S2 normal heart sound present GI Inspection: Yes normal to inspection Palpation (GI): Soft to palpation Percussion: Yes normal to percussion Auscultation: normal bowel sounds Coding Level of Care Code Est Pt Level 4 (85086) Diagnoses Bipolar 1 disorder F31.9 Abdominal pain R10.9 Assessment & Plan Assessment & Plan (1) Bipolar 1 disorder: Comment: f/u with psychiatry, hospitalized at [facility] for 1 week in 2022, restarted meds mid August 2024 Code(s): F31.9 - Bipolar disorder, unspecified Category: Medical Plan: Continue current medications (2) Abdominal pain: Comment: negative stool studies and celiac w/u. IBS Code(s): R10.9 - Unspecified abdominal pain Category: Medical Plan: For IBS increase dicyclomine to 20 mg 3 times a day. Well-balanced diet discussed with the patient famotidine 40 mg daily for 1 month will be tried for gastritis. Patient has an appointment with GI in April. She will follow-up in 2 months Medications: New dicyclomine 20 mg PO TID 90 tabs 1RF famotidine (Pepcid) 40 mg PO BEDTIME 30 tabs 1RF Discontinued dicyclomine Discontinued Reason: Doctor's Order 10 mg PO TID 90 caps 0RF
== END 2025-03-22 11:38 | disposition home or self-care (01) ==
LOC: HO.HMCC 10:50
PROVIDERS: PCP Internal Medicine; Visit Provider Internal Medicine
DX: F31.9 Bipolar disorder, unspecified (principal); R10.9 Unspecified abdominal pain

== ENCOUNTER → 2025-03-22 10:49 | Outpatient (BNVA) | payer OTHER, SELFPAY | PROVIDERS: PCP Internal Medicine; Visit Provider Internal Medicine | DX: R10.9 Unspecified abdominal pain (principal); F31.9 Bipolar disorder, unspecified; Z79.899 Other long term (current) drug therapy | CPT/HCPCS: 99212 ==